=== PATIENT | male | born 1970 | race Caucasian/White ===

== ENCOUNTER → 2020-06-03 | Outpatient (CLI) | payer BC ==
[~2020-06-03] MED LIST: B COMPLEX1 EACH PO; MULTIVITAMIN1 EACH PO; NOHOMEMEDICATIONS; NORCO 10-325 T1 EACH PO; VITAMIN C1000 MG PO
== END ==
LOC: M.LAB 16:14
PROVIDERS: ATTEND Surgery
DX: Z01.812 Encounter for preprocedural laboratory examination (principal); Z20.828 Contact with and (suspected) exposure to other viral communicable diseases

== ENCOUNTER → 2020-06-10 | Day surgery (SDC) | payer BC ==
[2020-06-10 06:53] LABS: HEMATOCRIT 45.8 % (42.0-52.0); HEMOGLOBIN 15.3 gm/dL (14.0-18.0); MCH 27.9 pg (26.0-34.0); MCHC 33.4 g/dL (28.0-37.0); MCV 83.5 fL (80.0-100.0); MPV 7.7 fl. (7.2-11.1); RBC 5.48 mil/uL (4.50-6.00); RDW-CV 13.7 % (10.5-14.5); WBC 5.6 thou/uL (4.0-11.0)
[2020-06-10 06:59] LABS: CALCIUM 8.3 mg/dL (8.5-10.1); POTASSIUM 4.2 mmol/L (3.5-5.1)
--- NOTE | 2020-06-10 09:07 | EKG ---
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 : 1970 Requested By: Hakan Keen Order Number: [id number] Reading MD: Arvind Tnoy Measurements Intervals [employer] Rate: 64 P: 17 WA: 155 QRS: -78 QRSD: 108 T: 7 QT: 429 QTc: 443 Interpretive Statements Sinus rhythm LAD, consider left anterior fascicular block ST elev, probable normal early repol pattern Baseline wander in lead(s) II,III,aVL,aVF,V3,V5,V6 No previous ECG available for comparison Electronically Signed On 06-10-2020 9:07:04 [employer] by Arvind Tony [email or web address] <ELECTRONICALLY SIGNED> By: Arvind Tony MD, FACC 06/10/20906 9 9 Arvind Tony MD, FACC /EPI
--- NOTE | 2020-06-27 11:07 | OP ---
[facility] [address] [place] [address] [address] OPERATIVE REPORT Name: DAVID WOOD Room: [facility]..#: [id number] Admission: 06/10/20 Attend Phys: Hakan Keen Discharge: Date of : 66 Report #: [id number] THIS REPORT FOR: cc: Jayant Bradley Robin L. FNP ~ Hakan Keen MD CC: Hakan Bradley DATE OF SERVICE: 06/10/2020 PREOPERATIVE DIAGNOSIS: Incarcerated umbilical hernia. POSTOPERATIVE DIAGNOSIS: Incarcerated umbilical hernia. OPERATION: Laparoscopic repair of incarcerated umbilical hernia with mesh. SURGEON: Hakan Keen MD ANESTHESIA: General. ESTIMATED BLOOD LOSS: Minimal. SPECIMEN: None. DESCRIPTION OF PROCEDURE: After informed consent was obtained, the patient was brought to the operating room and placed supine. SCDs were placed and working, preoperative antibiotics were administered, general anesthesia was induced. The abdomen was prepped and draped in the usual sterile fashion. A 5 mm incision was made in the left upper quadrant. A 5 mm trocar was placed under direct vision. Pneumoperitoneum was established. Left-sided 8 mm trocar and a right-sided 5 mm trocar were placed under direct vision. He had incarcerated omentum and preperitoneal fat and an umbilical hernia defect. This was all reduced. Defect measured approximately 1 cm. I therefore inserted an 11 cm Bard Ventralight mesh. It was brought up to the abdominal wall and tacked over the defect covering the defect widely. Approximately 35 absorbable tacks were used. A transfascial 2-0 Ethibond suture was placed using a PMI suture passer. The ports were removed under direct vision. The skin was closed with 4-0 Monocryl. Incisions were sealed with Dermabond. COMPLICATIONS: [place] [address] OPERATIVE REPORT Name: DAVID WOOD Room: [facility]#: [id number] Admission: 06/10/20 Attend Phys: Hakan Keen Discharge: Date of : 66 Report #: [id number] DISPOSITION: The patient was taken to recovery in satisfactory condition. <ELECTRONICALLY SIGNED> By: Hakan Keen MD 06/27/20 1107 0831 [id number] Keen MD /nt
== END | disposition home or self-care (01) ==
LOC: M.SUR 06:11
PROVIDERS: ATTEND Surgery
DX: K42.0 Umbilical hernia with obstruction, without gangrene (principal); K21.9 Gastro-esophageal reflux disease without esophagitis; F17.210 Nicotine dependence, cigarettes, uncomplicated; Z98.890 Other specified postprocedural states; Z79.899 Other long term (current) drug therapy